=== PATIENT | male | born 2005 | race Caucasian/White ===

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

== ENCOUNTER 2025-04-02 15:56 | Emergency (ER) | payer SELFPAY ==
[2025-04-02 16:30] VITALS: BP 118/72; PULSE 87; RESP 16; O2SAT 98
--- NOTE | 2025-04-02 18:57 | ED_ITS ---
<Statement entered by Summer Aponte DO - 04/02/25 22:26> I was consulted by the TOBIAS, and we discussed the complexity of the problems being addressed. I approved the treatment and management plan for this patient's care in the emergency department, thus performing a substantive portion of the medical decision making. Summer Aponte DO Discharge Plan Disposition Patient Disposition: Home, Self-Care Prescriptions Prescriptions: No Action trazodone 100 MG tablet 100 mg PO DAILY sulfamethoxazole-trimethoprim [Bactrim DS] 800-160 mg tablet 1 tab PO BID 7 Days Qty: 14 0RF Referrals Follow up/Referrals: Lee,Viral, DO [Primary Care Provider, Medical] - See instructions Clinical Impressions Clinical Impression: PND (post-nasal drip) Print Language Print Language: [place] Leone[place] Discharge ED Provider: Summer Aponte General Adult HPI General Stated complaint: SOA, dizzy, throat closing up Time Seen by Provider: 04/02/25 16:03 History of Present Illness HPI narrative: Jam Uriostegui is a 19-year-old male who presents emergency room today with complaints of dizziness that has resolved and complaints of not being able to feel his throat . Patient reports that he woke up this morning and it felt like his throat was a bit swollen. No swelling in his tongue or his lips. States that he had some difficulty swallowing and it was mildly painful. Patient reports he is had some postnasal drip that started yesterday. Apparently there has been upper respiratory viral symptoms going around his house. States he also took some trazodone last night which she does not like to take regularly because it makes him feel funny . Reports that he is taken trazodone in the past and has woke up feeling mildly dizzy from it. States he had the same issue this morning, got up and felt like his head was spinning . Dizziness has since resolved. Patient states that he feels like he is able to adequately swallow now but his throat still is a bit sore. Does report some ongoing sinus drainage. Is able to walk normal and denies any unilateral weakness, numbness, tingling. No facial droop noted, no voice changes. No fever. No other complaints at this time. Please note that the above description of symptoms, and this electronic medical record under categorization of recalled from ER triage doctor by RN are reflective of an initial nursing assessment, however, is not reflective of my full history and physical exam that was personally taken and clarified. Consequentially, this proceeding description of symptoms, which may include the patient's cauterized chief complaint in the EMR, do not reflect my personal clinical impression, and the ultimate description of the history of present illness stated complaints should be deferred to this section of this note. Unless stated otherwise were congruent with the section of the note, additional signs, symptoms, or incongruence can be interpreted as in or accurate with my clinical impression. Related Data Home Medications ?Medication ?Instructions ?Recorded ?Confirmed trazodone 100 mg tablet 100 mg PO DAILY ADHD 0 04/30/20 Previous Rx's ?Medication ?Instructions ?Recorded sulfamethoxazole 800 1 tab PO BID 7 days #14 tabs 12/29/24 mg-trimethoprim 160 mg tablet (Bactrim DS) Allergies Allergy/AdvReac Type Severity Reaction Status Date / Time cefdinir (From OMNICEF) Allergy Mild Unknown Verified 12/29/24 13:24 allergy reaction lisdexamfetamine (From Allergy Mild Unknown Verified 12/29/24 13:24 Vyvanse) allergy reaction PFSH PFS Disclaimer: The information contained in this section may have been updated after the patient was seen, as this information can be updated by other users. Social History , [employer]) Smoking Status: Current every day smoker alcohol intake: current alcohol intake frequency: a few times a month current occupational status: employed Travel in the last 8 weeks?: None Have you lived/traveled outside US in past 30 days?: No Contact w/someone who lives/traveled outside US past 30 days?: No Exposure to someone with infectious disease in past 14 days?: No Do you have a fever (greater than 100.4 F or 38 C)?: No Have you tested positive for COVID-19?: No Exposed to someone with COVID-19 in past 14 days?: No Do you have a sore throat?: No Do you have a cough?: No Do you have any weakness?: No Do you have any diarrhea?: No Are you experiencing any unusual bleeding?: No Do you have any muscle aches/pain?: No Do you have any abdominal pain?: No Are you experiencing loss of taste or smell?: No ROS Obtained: Yes Systems reviewed as appropriate & no additional complaints except as documented Physical Exam General General appearance: alert and in no apparent distress Head Head exam: atraumatic and normocephalic Eye Eye exam: Present PERRL and EOMI Neck Neck exam: Present trachea midline; Absent tenderness Chest Chest inspection: Present symmetric chest wall rise Respiratory Respiratory exam: Present normal lung sounds bilaterally Cardiovascular Cardiovascular exam: Present regular rate and normal rhythm Abdominal Exam Abdominal exam: Present soft and normal bowel sounds; Absent tenderness Extremities Exam Extremities exam: Present full ROM Neurological Exam Neurological exam: Present alert and oriented X3 Skin Skin exam: Present warm, dry and intact Medical Decision Making Medical Records Screening: Per USPSTF and CDC recommendations, given the prevalence of disease in our region, it is our hospital?s policy to screen for HIV and viral Hepatitis for all patients aged 18 and over and those with ongoing risk factors. Oswaldo Inquiry Pt receiving controlled substance: No Vital Signs: 04/02/25 16:30 Pulse Rate 87 Respiratory Rate 16 Blood Pressure 118/72 02 Sat by Pulse Oximetry 98 Oxygen Delivery Method Room Air Medical Decision Narrative: In summary patient is an 19-year-old male who presents emergency department for evaluation of throat swelling/soreness, dizziness that occurred this morning. Patient is hemodynamically stable upon arrival, afebrile. Unremarkable nonfocal physical exam. Trachea midline. Patient controlling secretions. No swelling in his face, lips, tongue. Differential diagnosis includes angioedema versus upper respiratory illness. Initial interventions include medication with Benadryl, Pepcid, and Solu-Medrol. CT of the head was considered but patient had no focal neurodeficits, was not dizzy anymore, was able to walk in a straight line, had 5/5 strength in all extremities, no facial droop noted, no vi suni changes. Chest x-ray was considered, but patient was on room air, had clear lung sounds, and was not tachypneic and denied a cough. I suspect his dizziness this morning was likely laded to his trazodone that he took last night which he states has made him dizzy and felt funny in the past. Patient not currently having any dizziness at this time. His sore throat is likely attributed to his postnasal drip which just started yesterday. Oropharynx was not reddened, no swelling noted. Upon repeat evaluation patient had acceptable resolution of symptoms, states he felt 100% improved after his medication administration. Given this patient was appropriate for discharge. He will not be discharged with any prescriptions. He was directed to follow-up with his primary care doctor as needed and return to the ER if his condition worsened or any of his symptoms returned. Critical Care Critical Care Time Critical Care Time: No
[2025-04-02 19:42] VITALS: BP 123/94; PULSE 89; RESP 19; TEMP 37.5; O2SAT 100; BMI 22.8
[2025-04-02 19:46] VITALS: BP 118/72; PULSE 86; RESP 18; TEMP 36.6; O2SAT 100
[2025-04-02 20:52] LABS: HIV Combo NEGATIVE (Negative)
[2025-04-02 21:00] LABS: Hepatitis C Ab Qual. W/ RFX NEGATIVE (Negative)
== END 2025-04-02 19:48 | disposition home or self-care (01) ==
PROVIDERS: Emergency Provider Emergency Medicine; PCP Family Medicine
DX: R09.82 Postnasal drip (principal); Z11.59 Encounter for screening for other viral diseases; Z11.4 Encounter for screening for human immunodeficiency virus [HIV]
CPT/HCPCS: 86803; 87389; 99283

== ENCOUNTER 2025-05-12 11:32 | Emergency (ER) | payer SELFPAY ==
--- OUTSIDE RECORDS SUMMARY | 2018-03-06 11:00 | XMS_ITS | Encounter Summary ---
Author Organization [place] [address] Care Team Providers Care Oxygen Equipment Technician Name Role Phone Jesus Alcantara DO, Viral Primary Care Provider [phone] Encounter Details Date Type Department Care Team (Latest Contact Info) Description 03/06/2018 11:00 AM EDT Hospital Encounter [facility] EKG [address] [place] [address] Left without seen Social History [...] 12/11/2024 9:35 PM Deborah Bloom RN * [place] Suicide Severity Rating Scale (Q shift for [...] documented as of this encounter Care Teams Oxygen Equipment Technician Relationship Specialty Start Date End Date Cuauhtemoc Lee DO [address] [place] [phone] PCP - General Family Medicine 05/22/14 09/16/24 documented as of this encounter
--- OUTSIDE RECORDS SUMMARY | 2025-03-14 15:00 | XMS_ITS | Encounter Summary ---
Author Organization [place] [address] Care Team Providers Care Furnace Builder Name Role Phone Hodan Petit APRN Primary Care Provider [phone] Reason for Visit * Reason Comments Insomnia Not sleeping, troubl e falling asleep, restless, nightmare Encounter Details Date Type Department Care Team (Late st Contact Info) Description 03/14/2025 3:00 PM EDT Office Visit [facility] [address] [place] [id number] Hodan Petit APRN [address] [place] [address] Chronic insomnia (Primary Dx) Social History Tobacco Use Types Packs/Day Years [...] on file Sexual Orientation Not on file documented as of this encounter Last Filed Vital Signs Vital Sign Reading Time Taken Comments Blood Pressure 124/78 03/14/2025 3:16 PM EDT Pulse 85 03/14/2025 3:16 PM EDT Temperature 36.6 C (97.8 F) 03/14/2025 3:16 PM EDT Respiratory Rate 20 03/14/2025 3:16 PM EDT Oxygen Saturation 98% 03/14/2025 3:16 PM EDT Inhaled Oxygen Concentration - - Weight 85.7 kg (189 lb) 03/14/2025 3:16 PM EDT Height 193 cm (6' 4 ) 03/14/2025 3:16 PM EDT Body Mass Index 23.01 03/14/2025 3:16 PM EDT documented in this encounter Ordered Prescriptions Prescription Sig Dispense Quantity Refills Last Filled Start Date End Date traZODone (DESYREL) 150 mg Oral TabletIndications: Chronic insomnia Take one to two tablet(s) by mouth at bedtime for sleep 60 Tablet 5 03/14/2025 documented in this encounter Progress Notes * Hodan Petit APRN - 03/14/2025 3:00 PM EDTAssociated Problem(s): Chronic insomnia Orders: traZODone (DESYREL) 150 mg Oral Tablet; Take one to two tablet(s) by mouth at bedtime for sleep After discussion of risks, benefits and possible side effects, will begin Trazodone as written. * Hodan Petit APRN - 03/14/2025 3:00 PM EDT Assessment & Plan Chronic insomnia Orders: traZODone (DESYREL) 150 mg Oral Tablet; Take one to two tablet(s) by mouth at bedtime for sleep After discussion of risks, benefits and possible side effects, will begin Trazodone as written. Progress Note: Vitals: 03/14/25 1516 BP: 124/78 Pulse: 85 Resp: 20 Temp: 97.8 ??F (36.6 ??C) TempSrc: Temporal SpO2: 98% Weight: 189 lb (85.7 kg) Height: (!) 6' 4 (1.93 m) Body mass index is 23.01 kg/m??. SUBJECTIVE: Chief Complaint Patient presents with Insomnia Not sleeping, trouble falling asleep, restless, nightmare HPI: Jam presents today with c/o recurrent severe insomnia. reports difficulty falling asleep and staying asleep. reports he was on prescribed medication for ADHD, mood disorder and insomnia from age [age] and once turning 18 he stopped all medication. states his mood is well controlled but he ishaving severe insomnia. had good control with Trazodone in the past. Review of Systems Constitutional: Negative. Respiratory: Negative. Cardiovascular: Negative. Gastrointestinal: Negative. Musculoskeletal: Negative. Skin: Negative. Neurological: Negative. Psychiatric/Behavioral: Positive for sleep disturbance. Negative for dysphoric mood and suicidal ideas. The patient is not nervous/anxious. OBJECTIVE: Physical Exam Vitals reviewed. Constitutional: General: He is not in acute distress. HENT: Mouth/Throat: Mouth: Mucous membranes are moist. Eyes: Conjunctiva/sclera: Conjunctivae normal. Cardiovascular: Rate and Rhythm: Normal rate and regular rhythm. Heart sounds: Normal heart sounds. Pulmonary: Effort: Pulmonary effort is normal. Breath sounds: Normal breath sounds. Abdominal: Palpations: Abdomen is soft. Musculoskeletal: Cervical back: Neck supple. Lymphadenopathy: Cervical: No cervical adenopathy. Skin: General: Skin is warm. Neurological: Mental Status: He is alert and oriented to person, place, and time. Psychiatric: Mood and Affect: Mood normal. Behavior: Behavior normal. Thought Content: Thought content normal. Judgment: Judgment normal. documented in this encounter Plan of Treatment Not on file documented as of this encounter Goals Goal Patient Goal Type Associated Problems Recent Progress Patient-Stated? Author Maintain a healthy diet, exercise regularly and maintain an ideal body weight General No Binh Hernandez MA documented as of this encounter Visit Diagnoses Diagnosis Chronic insomnia- Primary Insomnia, unspecified documented in this encounter Care Teams Furnace Builder Relationship Specialty Start Date End Date Hodan Petit APRN [address] [place], [place] [address] PCP - General Nurse Practitioner 12/13/24 documented as of this encounter
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
[2025-05-12 11:49] VITALS: BP 147/90; PULSE 88; RESP 16; TEMP 36.7; O2SAT 98; BMI 20.7
--- OUTSIDE RECORDS SUMMARY | 2025-05-12 11:50 | XMS_ITS | Clinical Summary ---
Author Organization [facility] Address Formerly [facility] [place] [address] Care Team Providers Care Gym Supervisor Name Role Phone Cuauhtemoc Lee V. D.OFlora Primary Care Provider [phone] Source Comments [facility] is fully rolled out with thefollowing exceptions:General Clinical Research [facility] Allergies Active Allergy Reactions Criticality Noted Date Comments Cefdinir 12/30/2018 Medications No known medications Social History Tobacco Use Types Packs/Day Years Used Date Smoking Tobacco: Never Assessed Intimate Partner Violence Answer Date R ecorded If you are in a relationship , do you feel safe in that relationship? Yes 12/30/2018 Safe in relationship? (18 and older) Not on file 12/30/2018 Safety and Environment Answer Date Jona rded Do you have any concerns of physical abuse, sexual abuse, or neglect of your child? No 12/30/2018 Is an adult hurting you or your family? No 12/30/2018 Has someone ever touched you in a sexual way that was not ok with you? No 12/30/2018 Someone hurting you or family (18 and older) Not on file 12/30/2018 Historical abuse worry Not on file 9 If you have firearms in the home, are they all in locked storage AND unloaded? Not on file 12/30/2018 Sex and Gender Information Value Date Recorded Sex Assigned at Not on file Legal Sex Male 5:19 AM EST Gender Identity Not on file Sexual Orientation Not on file Last Filed Vital Signs Vital Sign Reading Time Taken Comments Blood Pressure 129/64 12/30/2018 1:58 PM EST Pulse 74 12/30/2018 6:14 PM EST Temperature 36.7 C (98.1 F) 12/30/2018 6:14 PM EST Respiratory Rate 16 12/30/2018 6:14 PM EST Oxygen Saturation - - Inhaled Oxygen Concentration - - Weight 61.6 kg (135 lb 12.9 oz) 12/30/2018 1:57 PM EST Height - - Body Mass Index - - Plan of Treatment Health Maintenance Due Date Last Done Comments MENINGOCOCCAL B VACCINE (1 of 2 - Standard) 2021 COVID-19 Vaccine ( season) 2024 AMB SEASONAL FLU VACCINE (Season Ended) 2025 08/23/2014 DTAP/Tdap/Td IMMUNIZATION (7 - Td or Tdap) 06/05/2027 06/05/2017, 2009, 2009, Additional history exists PNEUMOCOCCAL IMMUNIZATION Aged Out 2005, 04/20/2006, 02/13/2006 No longer eligible based on patient's age to complete this topic HIB IMMUNIZATION Completed 08/07/2007, , 04/20/2006, Additional history exists IPV IMMUNIZATION Completed 2009, , 03/27/2006, Additional history exists MMR IMMUNIZATION Completed 2009, 05/18/2007 VARICELLA IMMUNIZATION Completed 2009, 2006 HEPATITIS B IMMUNIZATION Completed 017, 12/11/2008, 03/27/2006, Additional history exists MCV4 IMMUNIZATION Aged Out 06/21/2017 No longer eligible based on patient's age to complete this topic HEPATITIS A IMMUN (OPTIONAL 2-17 YRS) Discontinued 01/05/2018, 06/21/2017 HPV IMMUNIZATION Completed 06/29/2018, 06/05/2017 Respiratory Syncytial Virus (RSV) <20mo Aged Out No longer eligible based on patient's age to complete this topic Insurance Member Subscriber Plan / Payer (Ef fective 2018-Present) Name:Jam Bustamante Relation to Subscriber:Self Name:Jam Bustamante Payer ID:[id number] (NAIC) Group ID:Not on file Type:HMO Medicaid Address: [place], [place] Care Teams Gym Supervisor Relationship Specialty Start Date End Date [place] [address] PCP - General 05/15/18
--- OUTSIDE RECORDS SUMMARY | 2025-05-12 11:50 | XMS_ITS | Clinical Summary ---
Author Organization [facility] Address [address] [id number] Care Team Providers Care Machine Assistant Name Role Phone None, None Primary Care Provider Unavailabl e Allergies Active Allergy Reactions Criticality Noted Date Comments Cefdinir Rash 02/03/2012 Lisdexamfetamine Other (See Comments) 2 TICS Medications Amphetamine-Dextro amphetamine (ADDERALL XR) 20 mg PO [id number]:AD HD (attention deficit hyperactivity disorder) Take 20 mg by mouth daily. 30 Tab 0 4 Active risperiDONE (RISPERDAL) 2 mg PO Tab Take 1 Tab by mouth 2 times daily. 60 Tab 0 4 Active divalproex (DEPAKOTE SPRINKLE) 125 mg Capsule, Sprinkle TAKE ONE CAPSULE BY MOUTH EVERY MORNING AND TWO CAPSULES EVERY EVENING 90 Cap 0 4 Active Active Problems Problem Noted Date Diagnosed Date ADHD (attention deficit hyperactivity disorder) 01/24/2013 Mood disorder ([facility]) 01/24/2013 Behavioral problems 01/24/2013 Affective disorder ([facility]) 01/24/2013 Social History Tobacco Use Types Packs/Day Years Used Date Smoking Tobacco: Never Assessed Tobacco Cessation:Counseling Given: Yes Sex and Gender Information Value Date Recorded Sex Assigned at Not on file Legal Sex Male 7:18 PM EST Gender Identity Not on file Sexual Orientation Not on file Last Filed Vital Signs Vital Sign Reading Time Taken Comments Blood Pressure 84/60 11/20/2013 1:53 PM EST Pulse 92 11/20/2013 1:53 PM EST Temperature 36.7 C (98 F) 11/20/2013 1:53 PM EST Respiratory Rate 16 12/19/2012 4:39 PM EST Oxygen Saturation 98% 11/20/2013 1:53 PM EST Inhaled Oxygen Concentration - - Weight 31.8 kg (70 lb 3.2 oz) 11/20/2013 1:53 PM EST Height 137.8 cm (4' 6.25 ) 11/20/2013 1:53 PM ES T Body Mass Index 16.77 11/20/2013 1:53 PM EST Body Mass Index Percentile 70.98% 11/20/2013 1:5 3 PM EST Growth Chart: [facility] (Boys, 2-2 0 Years) Plan of Treatment Health Maintenance Due Date Last Done Comments HPV Vaccine (1 - Male 3-dose series) 2020 Tetanus Vaccination (Every 1 0 Years) 2023 COVID-19 Vaccine (1 - 2023-2 5 season) 2024 Depression Screening 11/06/2024 Influenza Vaccination (#1) 2025 Meningococcal Conjugate Vaccine Aged Out No longer eligible based on patient's age to complete this topic Insurance MEDICAID [place] MEDICAID OTHER STATES Care Teams Machine Assistant Relationship Specialty Start Date End Date None, None [address] [place] [address] PCP - General 04/09/14
--- OUTSIDE RECORDS SUMMARY | 2025-05-12 11:50 | XMS_ITS | Encounter Summary ---
Author Organization [facility] Address [address] [place] [address] Care Team Providers Care Pharmacist Assistant Name Role Phone None, None Primary Care Provider Unavailabl e Reason for Visit * Reason Comments Medications Refill Encounter Details Date Type Department Care Team (Late st Contact Info) Description 06/21/2014 Refill [facility] Physicians - Primary Care, Betty Dinh [address] [place] [address] [place] [address] Medications Refill Social History Tobacco Use Types Packs/Day Years Used Date Smoking Tobacco: Never Assessed Sex and Gender Information Value Date Recorded Sex Assigned at Not on file Legal Sex Male 7:18 PM EST Gender Identity Not on file Sexual Orientation Not on file documented as of this encounter Miscellaneous Notes * Telephone Encounter - Maicol Lovett MD - 06/23/2014 6:09 PM EDT Patient was dismissed for no shows. Was done back in April. No further refills. * Telephone Encounter - Clair Pichardo - 06/23/2014 9:42 AM EDT LAST OV 11/20/2013 LAST REF 02/18/2014 NO FURTHER APPT OKAY TO REFILL? documented in this encounter Plan of Treatment Not on file documented as of this encounter Visit Diagnoses Not on filedocumented in this encounter Care Teams Pharmacist Assistant Relationship Specialty Start Date End Date None, None [address] [place] [address] PCP - General 04/09/14 documented as of this encounter
--- OUTSIDE RECORDS SUMMARY | 2025-05-12 11:50 | XMS_ITS | Clinical Summary ---
Author Organization [facility] Address [facility] [place] [address] Phone Care Team Providers Care Patient Safety Sitter Name Role Phone Hodan Petit APRN Primary Care Provider [phone] Allergies Active Allergy Reactions Criticality Noted Date Comments Methylphenidate 10/18/2010 Cefdinir Rash Lisdexamfetamine Other (See Comments) 1 Causes tics Medications * This document contains information received from the source organization and may not represent a complete record from that organization. traZODone (DESYREL) 150 mg Oral TabletIndicatio ns:Chronic insomnia Take one to two tablet(s) by mouth at bedtime for sleep 60 Tablet 5 03/14/2025 Active Active Problems Problem Noted Date Diagnosed Date ADHD (attention deficit hyperactivity disorder) 08/23/2010 Chronic insomnia 08/23/2010 Assessment & Plan (03/14/2025 8:19 PM EDT): Orders: traZODone (DESYREL) 150 mg Oral Tablet; Take one to two tablet(s) by mouth at bedtime for sleep After discussion of risks, benefits and possible side effects, will begin Trazodone as written. Encounters Date Type Department Care Team Description 03/14/2025 3:00 PM EDT Office Visit [facility] [address] [place], [place] [phone] Hodan Petit APRN Chronic insomnia (Primary Dx) from Last 3 Months Immunizations Immunization Administration Dates Next Due DTaP 2009, 7,05/26/2006,03/07,02/13/2006 DTaP, Unspecified Formulation 2009 ,08/07/2007,05/26/2006,03/07,02/13/2006 HPV 9 Valent 06/29/2018,06/05/2017 Hepatitis A, Ped/Adol, 2 Dose 01/05/2018, 017 Hepatitis B, Ped/Adol 06/21/2017, 009,02/13/2006,11/07 Hepatitis B, Unspecified Formulation 03/27/2006, 02/13/2006,2005 HiB, Unspecified Formulation 08/07/2007, 05/26/2006,04/20/2006,02/04 IPV 2009, 6,03/27/2006,02/04 Influenza Vaccine Quadrivalent 08/23/2014 LAST MANUFACTURED 2010-Pneum ococcal Conjugate 7 Valent 05/26/2006,04/20/2006,02/13/2006 MMR 2009,05/18/2007 Meningococcal Conjugate 06/21/2017 Meningococcal Oligosaccharide Conjugate 01/05/20 23 Pneumococcal Conjugate Vacci ne 13 Valent 05/26/2006,04/20/2006,02/13/2006 Tdap 11/24/2024,06/05/2017 Varicella 2009,11/27/2006 Surgical History Surgery Date Site/Laterality Comments TONSILLECTOMY DENTAL SURGERY dental and frenulectomy DENTAL SURGERY 01/19/2011 N/A DENTAL PROCEDURE performed by HERLINDA HERNNADEZ at [facility] MAIN OR DENTAL SURGERY 01/07/2015 N/A DENTAL PROCEDURE, exam under anesthesia, extractions x 7, prophylaxis, flouride, restorations; Surgeon: Herlinda Hernandez DMD; Location: [facility]; Service: Dental Medical History Medical History Date Comments Attention deficit disorder ADHD (attention deficit hyperactivity disorder) Second hand smoke exposure x2 Hx MRSA infection Mood disorder Bipolar disorder (HCC) Family History Medical History Relation Name Comments Anesth Problems Neg Hx Relation Name Status Comments Father Alive Mother Alive Social History Tobacco Use Types Packs/Day Years Used Date Smoking Tobacco: Never Passive Smoke Exposure: Yes Smokeless Tobacco: Never Tobacco Cessation:Counseling Given: Not Answered Alcohol Use Standard Drinks/Week Comments No 0 [...] on file Sexual Orientation Not on file Obstetrics History Growth Chart Information Age Height Weight [id number] th Percentile BMI Percentile Head Circum Head Circum Percentile Date 19 years 193 cm (6' 4 ) 85.7 kg (189 lb) 54.70%* 2024 19 years 193 cm (6' 4 ) 85.7 kg (189 lb) 56.51%* 2024 18 years 193 cm (6' 4 ) 88 kg (194 lb) 63.88%* 2024 17 years 190.5 cm (6' 3 ) 87.9 kg (193 lb 11.2 oz) 79.81%* 2022 15 years 187 cm (6' 1.62 ) 100 kg (220 lb 6.4 oz) 95.78%* 2020 15 years 185.4 cm (6' 1 ) 97.3 kg (214 lb 9.6 oz) 95.77%* 2020 14 years 78.4 kg (172 lb 14.4 oz) 2019 14 years 76.4 kg (168 lb 7 oz) 2019 13 years 165.1 cm (5' 5 ) 61.2 kg (135 lb) 86.31%* 2018 13 years 61.7 kg (136 lb) 2018 12 years 164.5 cm (5' 4.75 ) 57.6 kg (127 lb) 83.98%* 2017 12 years 62.1 kg (137 lb) 2017 11 years 57.2 kg (126 lb 3.2 oz) 2016 11 years 53.1 kg (117 lb) 2016 11 years 154.3 cm (5' 0.75 ) 53.1 kg (117 lb) 91.98%* 2016 10 years 146.1 cm (4' 9.5 ) 41.5 kg (91 lb 6.4 oz) 81.77%* 2015 10 years 146.1 cm (4' 9.5 ) 37.1 kg (81 lb 12.8 oz) 62.55%* 2015 9 years 143 cm (4' 8.3 ) 35.4 kg (78 lb 2 oz) 68.53%* 2014 9 years 142.2 cm (4' 8 ) 36.6 kg (80 lb 9.6 oz) 78.40%* 2014 9 years 142.2 cm (4' 8 ) 35.8 kg (79 lb) 75.22%* 2014 9 years 139.7 cm (4' 7 ) 35.6 kg (78 lb 8 oz) 81.33%* 2014 9 years 37.6 kg (83 lb) 2014 9 years 141 cm (4' 7.5 ) 37.6 kg (83 lb) 86.85%* 2014 9 years 38.1 kg (84 lb) 2014 8 years 138 cm (4' 6.33 ) 31.8 kg (70 lb) 63.05%* 2013 8 years 138 cm (4' 6.33 ) 26.5 kg (58 lb 6.4 oz) 5.57%* 2013 7 years 30.4 kg (67 lb 2 oz) 2012 6 years 124.5 cm (4' 1 ) 24.5 kg (54 lb) 60.24%* 2011 6 years 24.6 kg (54 lb 3 oz) 2011 6 years 23.2 kg (51 lb 3 oz) 2011 6 years 22.9 kg (50 lb 8 oz) 2011 5 years 22.7 kg (50 lb) 2010 5 years 20 kg (44 lb) 2010 5 years 19.5 kg (43 lb) 2010 5 years 19.5 kg (43 lb) 2010 5 years 19.5 kg (43 lb) 2010 5 years 115.6 cm (3' 9.5 ) 19.1 kg (42 lb) 14.97%* 13.06%* 2010 5 years 113 cm (3' 8.5 ) 19.5 kg (43 lb) 47.22%* 45.13%* 2010 5 years 18.6 kg (41 lb) 2010 5 years 116.8 cm (3' 10 ) 19.5 kg (43 lb) 15.89%* 13.44%* 2010 5 years 116.8 cm (3' 10 ) 19.5 kg (43 lb) 15.89%* 13.40%* 2010 4 years 19.1 kg (42 lb) 2010 4 years 19.1 kg (42 lb) 2009 4 years 19.1 kg (42 lb) 2009 4 years 111.8 cm (3' 8 ) 18.8 kg (41 lb 6 oz) 38.39%* 34.63%* 2009 * CDC (Boys, 2-20 Years) Last Filed Vital Signs Vital Sign Reading [...] Mass Index 23.01 03/14/2025 3:16 PM EDT Plan of Treatment Health Maintenance Due Date Last Done Comments Meningococcal B Vaccine (1 of 2 - Standard) 2021 COVID-19 Vaccine ( - 2023- season) 2024 Influenza Vaccine (#1) 2025 6 (Declined), 08/23/2014 Annual Wellness Exam 12/13/2025 12/13/2024 DTaP/TDaP/Td (8 - Td or Tdap) 11/24/2034 11/24/2024, 06/05/2017, 2009, Additional history exists Pneumococcal Vaccine 0-49 Aged Out 2005, 05/26/2006, 04/20/2006, Additional history exists No longer eligible based on patient's age to complete this topic Hepatitis B Vaccine Completed 06/21/2017, 12/11/2008, 03/27/2006, Additional history exists HPV Completed 06/29/2018, 06/05/2017 Goals Goal Patient Goal Type Associated Problems Recent Progress Patient-Stated? Author Maintain a healthy diet, exercise regularly and maintain an ideal body weight General No Binh Hernandez MA Insurance [employer] [facility] [place] [id number] [employer] [facility] ATTN: [employer] [place] [address] [place] [id number] [place] [address] [place] [phone] Care Teams Patient Safety Sitter Relationship Specialty Start Date End Date Hodan Petit, SOFTWARE VALIDATION ENGINEER [address] [place] [address] PCP - General Nurse Practitioner 12/13/24
[2025-05-12] MEDS: IBUPROFEN 400 MG TABLET 800 MG PO (12:32)
[2025-05-12] MEDS: LIDOCAINE 5% TRANSDERMAL PATCH 1 EACH TD (12:32)
[2025-05-12] MEDS: METHOCARBAMOL 500MG TABLET 500 MG PO (12:33)
[2025-05-12] MEDS: ACETAMINOPHEN 500MG TAB 1000 MG PO (12:33)
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
[2025-05-12 12:56] VITALS: BP 130/80; PULSE 80; RESP 18; TEMP 36.7; O2SAT 98
== END 2025-05-12 12:58 | disposition home or self-care (01) ==
PROVIDERS: Emergency Provider Emergency Medicine; PCP Pediatrics
DX: M25.512 Pain in left shoulder (principal); W17.89XA Other fall from one level to another, initial encounter
CPT/HCPCS: 73000; 73030; 73060; 99284

== ENCOUNTER 2025-08-24 15:48 | Emergency (ER) | payer SELFPAY ==
--- OUTSIDE RECORDS SUMMARY | 2018-03-06 11:00 | XMS_ITS | Encounter Summary ---
Author Organization [place] [address] Care Team Providers Care Chairman & Chief Executive Officer Name Role Phone Jesus Alcantara DO, Viral Primary Care Provider [phone] Encounter Details Date Type Department Care Team (Latest Contact Info) Description 03/06/2018 11:00 AM EDT Hospital Encounter [facility] EKG [address] [facility] [place] [address] Left without seen Social History Tobacco Use Types Packs/Day Years Used Date Smoking Tobacco: Never Passive Smoke Exposure: Yes Smokeless Tobacco: Never Alcohol Use Standard Drinks/Week Comments No 0 (1 standard drink = 0.6 oz pur e alcohol) Overall Financial Resource Strain (CARDIA) Answe r Date Recorded Difficulty of Paying Living Expenses Not hard at all 04/23/2020 PHQ-2 Answer Date Recorded PHQ-2 Total Score 0 12/13/2024 Hunger Vital Sign Answer Date Recorded Worried About Running Out of Food in the Last Ye ar Never true 04/23/2020 Ran Out of Food in the Last Year Never true 04/23/2020 PRAPARE - Transportation Answer Date Re corded Lack of Transportation (Medical) No 04/23/2020 Lack of Transportation (Non-Medical) No 04/23/2020 Sexually Active Control Partners Comments Yes Female Sex and Gender Information Value Date Recorded Sex Assigned at Not on file Legal Sex Male 7:24 AM EDT Gender Identity Not on file Sexual Orientation Not on file COVID-19 Exposure Response Date Recorded In the last 10 days, have yo u been in contact with someone who was confirmed or suspected to have Coronavirus/COVID-19? No / Unsure 02/17/2023 8:33 PM EDT documented as of this encounter Functional Status * Alcohol Screening Questionnaire (AUDIT) Question Answer Date of Assessment Author How often do you have a drin k containing alcohol? 0 04/24/2020 9:46 PM EDT Yris Inman, JANELL * Alcohol Screening Score Answer Date of Assessment Author 0 04/24/2020 9:46 PM EDT Yris Inman RN * Drug Screening Score Answer Date of Assessment Author 0 04/24/2020 9:46 PM EDYris Lai RN * PHQ-9 Total Score Answer Date of Assessment Author 0 12/13/2024 10:41 AM EST Delaney Michaels, RMA * Question Answer Date of Assessment Author Little interest or pleasure in doing things 0 12/13/2024 10:41 AM EST Keara, Yovanny y Sera, RMA Feeling down, depressed, or hopeless 0 12/13/2024 10:41 AM EST KearaCornelius zamarripa, RMA PHQ-2 Total Score 0 12/13/2024 10:41 AM EST KearaDelaney zamarripa, RMA * Question Answer Date of Assessment Author Trouble falling or staying asleep, or sleeping too much 0 12/13/2024 10:41 AM EST McCnahuml essDelaney, RMA Feeling tired or having sulma le energy 0 12/13/2024 10:41 AM EST KearaCornelius zamarripa, RMA Poor appetite or overeating 0 12/13/2024 10 :41 AM EST Delaney Sarah, RMA Feeling bad about yourself - or that you are a failure or have let yourself or your family down 0 12/13/2024 10:41 AM EST Cornelius Sarah, RMA Trouble concentrating on things, such as reading the newspaper or watching television 0 12/13/2024 10:41 AM EST KearaCornelius zamarripa, RMA Moving or speaking so slowly that other people could have noticed. Or the opposite - being so fidgety or restless that you have been moving around a lot more than usual 0 12/13/2024 10:41 AM EST McCandl essDelaney, RMA Thoughts that you would be better off , or of hurting yourself in some way 0 12/13/2024 10:41 AM EST Benedict Sarah, RMA * Suicide Severity Rating Answer Date of Assessment Author No Risk 12/11/2024 9:35 PM Deborah Bloom RN * [place] Suicide Severity Rating Scale (Q shift for moderate and high) Question Answer Date of Assessment Author 1. In the past month, have y ou wished you were or wished you could go to sleep and not wake up? 0 12/11/2024 9:35 PM Lyn Bloom RN 2. In the past month, have y ou actually had any thoughts of killing yourself? (If no, skip to question 6) 0 12/11/2024 9:35 PM Ld Bloom RN 6. Have you ever done anythi ng, started to do anything, or prepared to do anything to end your life? 0 12/11/2024 9:35 PM Ld Bloom RN documented as of this encounter Plan of Treatment Not on file documented as of this encounter Goals Goal Patient Goal Type Associated Problems Recent Progress Patient-Stated? Author Maintain a healthy diet, exercise regularly and maintain an ideal body weight General No Binh Hernandez MA documented as of this encounter Visit Diagnoses Not on filedocumented in this encounter Additional Health Concerns Infection Onset Date Last Indicated Resolved Time R/O COVID-19 08/24/2021 08/24/2021 08/25/2021 12:5 7 AM EDT documented as of this encounter Care Teams Chairman & Chief Executive Officer Relationship Specialty Start Date End Date Cuauhtemoc Lee DO [address] [place] [phone] PCP - General Family Medicine 05/22/14 09/16/24 documented as of this encounter
[2025-08-24 15:53] VITALS: BP 156/80; PULSE 83; RESP 18; TEMP 36.7; O2SAT 99; BMI 23.0
--- OUTSIDE RECORDS SUMMARY | 2025-08-24 16:00 | XMS_ITS | Clinical Summary ---
Author Organization [facility] Address [address] [address] Care Team Providers Care Visual Education Teacher Name Role Phone None, None Primary Care Provider Unavailabl e Allergies Active Allergy Reactions Criticality Noted Date Comments Cefdinir Rash 02/03/2012 Lisdexamfetamine Other (See Comments) 2 TICS Medications Amphetamine-Dextro amphetamine (ADDERALL XR) 20 mg PO [id number]:AD HD (attention deficit hyperactivity disorder) Take 20 [...] (attention deficit hyperactivity disorder) 01/24/2013 Mood disorder 01/24/2013 Behavioral problems 01/24/2013 Affective disorder 01/24/2013 Social History Tobacco Use Types Packs/Day [...] 11/20/2013 1:5 3 PM EST Growth Chart: [facility] (Boys, 2-2 0 Years) Plan of Treatment Health Maintenance Due Date Last Done Comments HPV Vaccine (1 - Male 3-dose series) 2020 Tetanus Vaccination (Every 1 0 Years) 2023 Depression Screening 11/06/2024 COVID-19 Vaccine (1 - 2023-2 5 season) 2025 Influenza Vaccination (#1) 2025 Meningococcal Conjugate Vaccine Aged Out No longer eligible based on patient's age to complete this topic Insurance MEDICAID OTHER STATES MEDICAID OTHER STATES Care Teams Visual Education Teacher Relationship Specialty Start Date End Date None, None [address] [place] [address] PCP - General 04/09/14
--- OUTSIDE RECORDS SUMMARY | 2025-08-24 16:00 | XMS_ITS | Clinical Summary ---
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 Social History Tobacco Use Types Packs/Day Years Used Date Smoking Tobacco: Never Assessed Sex and Gender Information Value Date Recorded Sex Assigned at Not on file Legal Sex Male 2:14 PM EDT Gender Identity Not on file Sexual Orientation Not on file Plan of Treatment Health Maintenance Due Date Last Done Comments Annual SDOH Screening 11/06/2024 Depression Screening 11/06/2024 Influenza Vaccine (#1) 2025 08/23/2014 Tdap/Td Vaccine >11 yo (7 - Td or Tdap) 06/05/2027 06/05/2017, 2009, 2009, Additional history exists Pneumococcal Vaccines 6-49 yo Risk Aged Out 05/26/2006, 05/26/2006, 05/26/2006, Additional history exists No longer eligible based on patient's age to complete this topic Haemophilus Influenzae Type B (Hib) Vaccine Completed 08/07/2007, 05/26/2006, 04/20/2006, Additional history exists Polio (IPV) Completed 2009, 05/07, 03/27/2006, Additional history exists Hepatitis B (HepB) Vaccine Completed 06/21, 12/11/2008, 03/27/2006, Additional history exists Meningococcal ACWY Aged Out 06/21/2017 No longer eligible based on patient's age to complete this topic Hepatitis A (HepA) Vaccine Completed 01/05/2018, HPV Vaccine Completed 06/29/2018, 06/05/2017 Rotavirus (RV) Vaccine Aged Out No lo nger eligible based on patient's age to complete this topic Insurance [facility] Care Teams Research Microbiologist Relationship Specialty Start Date End Date None, Physician PCP - General 07/23/20
--- OUTSIDE RECORDS SUMMARY | 2025-08-24 16:00 | XMS_ITS | Encounter Summary ---
Author Organization [facility] Address [address] [place] [address] Care Team Providers Care Heavy Forging Machine Operator Name Role Phone None, None Primary Care Provider Unavailabl e Reason for Visit * Reason Comments Medications Refill Encounter Details Date Type Department Care Team (Late st Contact Info) Description 06/21/2014 Refill [facility] Physicians - Primary Care, Betty Dinh [address] [place] [address] [place] [address] Medications Refill Social History Tobacco Use Types [...] on filedocumented in this encounter Care Teams Heavy Forging Machine Operator Relationship Specialty Start Date End Date None, None [address] [place] [address] PCP - General 04/09/14 documented as of this encounter
--- OUTSIDE RECORDS SUMMARY | 2025-08-24 16:00 | XMS_ITS | Clinical Summary ---
Author Organization [facility] Address [facility] [place] [address] Care Team Providers Care Global Manager Name Role Phone Cuauhtemoc Lee DO Primary Care Provider [phone] Source Comments [facility] is fully rolled out with thefollowing exceptions:General Clinical Research [facility] Allergies Active Allergy Reactions Criticality Noted [...] VACCINE (1 of 2 - Standard) 2021 AMB SEASONAL FLU VACCINE (#1) 07/07/2025 08/23/2014 COVID-19 Vaccine ( season) 2025 DTAP/Tdap/Td IMMUNIZATION (7 - Td or Tdap) [...] Relation to Subscriber:Self Name:Jam Bustamante Payer ID:[id number] (NA) Group ID:Not on file Type:HMO Medicaid Address: [place], [place] Care Teams Global Manager Relationship Specialty Start Date End Date Cuauhtemoc Lee DO [address] [address] PCP - General 05/15/18
--- OUTSIDE RECORDS SUMMARY | 2025-08-24 16:00 | XMS_ITS | Clinical Summary ---
Author Organization [facility] Address [facility] [place] [address] Phone Care Team Providers Care Ceiling Insulation Blower Name Role Phone Hodan Petit APRN Primary Care Provider [phone] Allergies Active Allergy Reactions Criticality Noted Date Comments Methylphenidate 10/18/2010 Cefdinir Rash Lisdexamfetamine Other (See Comments) 1 Causes tics Medications * This document contains information received from the source organization and may not represent a complete record from that organization. No known medications Active Problems Problem Noted Date Diagnosed Date ADHD (attention deficit hyperactivity disorder) 08/23/2010 Chronic insomnia 08/23/2010 Assessment & Plan (03/14/2025 8:19 PM EDT): Orders: traZODone (DESYREL) 150 mg Oral Tablet; Take one to two tablet(s) by mouth at bedtime for sleep After discussion of risks, benefits and possible side effects, will begin Trazodone as written. Immunizations Immunization Administration Dates Next Due DTaP [...] 01/19/2011 N/A DENTAL PROCEDURE performed by HERLINDA HERNANDEZ at [facility] MAIN OR DENTAL SURGERY 01/07/2015 N/A DENTAL PROCEDURE, exam under anesthesia, extractions x 7, prophylaxis, flouride, restorations; Surgeon: Herlinda Hernandez DMD; Location: [facility] MAIN OR; Service: Dental Medical History Medical History Date [...] on file Sexual Orientation Not on file Growth Chart Information Age Height Weight Xointt-ydv-whno th Percentile BMI Percentile Head Circum Head Circum Percentile Date 19 years 193 cm (6' 4 ) 83 kg (183 lb) 43.80%* 2024 19 years 193 cm (6' 4 [...] lb 6 oz) 38.39%* 34.63%* 2009 * [facility] (Boys, 2-20 Years) Last Filed Vital Signs Vital Sign Reading Time Taken Comments Blood Pressure 118/74 05/14/2025 11:22 AM EDT Pulse 78 05/14/2025 11:22 AM EDT Temperature 36.6 C (97.9 F) 05/14/2025 11:22 AM EDT Respiratory Rate 20 05/14/2025 11:22 AM EDT Oxygen Saturation 98% 05/14/2025 11:22 AM EDT Inhaled Oxygen Concentration - - Weight 83 kg (183 lb) 05/14/2025 11:22 AM EDT Height 193 cm (6' 4 ) 05/14/2025 11:22 AM EDT Body Mass Index 22.28 05/14/2025 11:22 AM EDT Plan of Treatment Health Maintenance Due Date Last Done Comments Meningococcal B Vaccine (1 of 2 - Standard) 2021 COVID-19 Vaccine (1 - 2024- season) 2025 Influenza Vaccine (#1) 2025 6 (Declined), 08/23/2014 [...] an ideal body weight General No Binh Hernandez, [place] Insurance [place] [id number] [employer] Member Subscriber Plan / Payer (Ef fective 2024-Present) Name:Reece Bustamante Relation to Subscriber:Employee Name:REECE BUSTAMANTE Date of :2005 (Home) Address: [place] [address] Payer ID:Not on file Group ID:UNKNOWN Type:Not on file Address: [address] [id number] [facility] [place] [id number] [employer] [facility] [place] [id number] [place] [id number] [place] [phone] Care Teams Ceiling Insulation Blower Relationship Specialty Start Date End Date Hodan Petit [place] [place] [address] PCP - General Nurse Practitioner 12/13/24
--- NOTE | 2025-08-24 16:16 | ED_ITS ---
Discharge Plan Disposition Patient Disposition: Home, Self-Care Prescriptions Prescriptions: New amoxicillin-pot clavulanate 875-125 mg tablet 1 tab PO BID 7 Days Qty: 14 0RF ciprofloxacin-dexamethasone 0.3-0.1 % drops,suspension 4 drp otic (ear) BID 7 Days Qty: 7.5 0RF No Action trazodone 100 MG tablet 100 mg PO DAILY sulfamethoxazole-trimethoprim [Bactrim DS] 800-160 mg tablet 1 tab PO BID 7 Days Qty: 14 0RF Referrals Follow up/Referrals: Devon Serra [Primary Care Provider, Medical] - See instructions Activity Restrictions/Add. Instructions Additional Instructions/Restrictions: You are found to have an infection in the middle part of your as well as the ear canal itself. You are being prescribed antibiotics to take by mouth as well as antibiotic and steroid eardrops. Take these as prescribed for total of 7 days. Follow-up with your primary care physician if symptoms do not improve after completion of the antibiotics. If you develop any new or worsening symptoms such as fever, headaches, or if you become concerned for your help for any reason, return to the emergency department for evaluation Clinical Impressions Clinical Impression: Otitis media, Otitis externa Print Language Print Language: Hungarian Discharge ED Provider: [facility] Adult HPI General Chief complaint: Ear Stated complaint: left ear painful and face hurts Time Seen by Provider: 08/24/25 16:06 Mode of Arrival: Ambulatory Description of Symptoms (Recalled from ER Triage Doc. by RN): Pt presents for evaluation of left ear pain and left facial pain for a month. History of Present Illness HPI narrative: Jam Burns is a 19y male with a history of recurrent otitis media as a child requiring ear tubes that are no longer in place but otherwise healthy who presents to the emergency room for 1 month of left ear pain, ear drainage and decreased hearing. Patient states that feels like he has a left-sided ear infection. He has been taking an antibiotic that he had leftover from previous ear infection but does not know what it is. He states that he has pain in his left ear. He states that sometimes it hurts when he chews but does not have any dental pain. He does not have any fevers. Related Data Home Medications ?Medication ?Instructions ?Recorded ?Confirmed trazodone 100 mg tablet 100 mg PO DAILY ADHD 04/30/2 0 04/30/20 Previous Rx's ?Medication ?Instructions ?Recorded sulfamethoxazole 800 1 tab PO BID 7 days #14 tabs 12/29/24 mg-trimethoprim 160 mg tablet (Bactrim DS) amoxicillin 875 mg-potassium 1 tab PO BID 7 days #14 t abs 08/24/25 clavulanate 125 mg tablet ciprofloxacin 0.3 %-dexamethasone 4 drp otic (ear) BID 7 days #7.5 mL 08/24/25 0.1 % ear drops,suspension Allergies Allergy/AdvReac Type Severity Reaction Status Date / Time cefdinir (From OMNICEF) Allergy Mild Unknown Verified 12/29/24 13:24 allergy reaction lisdexamfetamine (From Allergy Mild Unknown Verified 12/29/24 13:24 Vyvanse) allergy reaction PFSH PFS Disclaimer: The information contained in this section may have been updated after the patient was seen, as this information can be updated by other users. Social History Smoking Status: Current every day smoker alcohol intake: current alcohol intake frequency: a few times a month current occupational status: employed Travel in the last 8 weeks?: None Have you lived/traveled outside [place] in past 30 days?: No Contact w/someone who lives/traveled outside [place] past 30 days?: No Exposure to someone with infectious disease in past 14 days?: No Do you have a fever (greater than 100.4 F or 38 C)?: No Have you tested positive for COVID-19?: No Exposed to someone with COVID-19 in past 14 days?: No Do you have a sore throat?: No Do you have a cough?: No Do you have any weakness?: No Do you have any diarrhea?: No Are you experiencing any unusual bleeding?: No Do you have any muscle aches/pain?: No Do you have any abdominal pain?: No Are you experiencing loss of taste or smell?: No ROS Obtained: Yes Systems reviewed as appropriate & no additional complaints except as documented Physical Exam General General appearance: alert and in no apparent distress Head Head exam: atraumatic Eye Eye exam: Present normal appearance ENT ENT exam: Present normal oropharynx (No tenderness to percussion), mucous membranes moist, normal external ear exam and other (No mastoid tenderness or bogginess. Tenderness with downward traction of the tragus. There is some erythema in the left external auditory canal and bulging and erythema of the left tympanic membrane) Neck Neck exam: Present full ROM Chest Chest inspection: Present symmetric chest wall rise Respiratory Respiratory exam: Present normal lung sounds bilaterally; Absent respiratory distress Cardiovascular Cardiovascular exam: Present regular rate and normal rhythm Abdominal Exam Abdominal exam: Present soft; Absent tenderness or guarding exam: Present deferred Extremities Exam Extremities exam: Present normal inspection Back Exam Back exam: Present normal inspection Neurological Exam Neurological exam: Present alert and oriented X3 Psychiatric Psychiatric exam: Present normal affect Skin Skin exam: Present warm and dry Medical Decision Making Medical Records Screening: Per USPSTF and CDC recommendations, given the prevalence of disease in our region, it is our hospital?s policy to screen for HIV and viral Hepatitis for all patients aged 18 and over and those with ongoing risk factors. Oswaldo Inquiry Pt receiving controlled substance: No Vital Signs: 08/24/25 15:53 Temperature 98.0 F Temperature Source Temporal Artery Scan Pulse Rate [Right] 83 Respiratory Rate 18 Blood Pressure [Right Arm] 156/80 H Blood Pressure Mean [Right Arm] 105 Blood Pressure Source [Right Arm] Automatic Cuff Blood Pressure Position [Right Arm] Sitting 02 Sat by Pulse Oximetry 99 Oxygen Delivery Method Room Air Medical Decision Narrative: Jam Burns is a 19y male with a history of recurrent otitis media as a child requiring ear tubes that are no longer in place but otherwise healthy who presents to the emergency room for 1 month of left ear pain, ear drainage and decreased hearing. Patient states that feels like he has a left-sided ear infection. He has been taking an antibiotic that he had leftover from previous ear infection but does not know what it is. He states that he has pain in his left ear. He states that sometimes it hurts when he chews but does not have any dental pain. He does not have any fevers. On arrival, patient is hypertensive with blood pressure 156/80, afebrile, breathing comfortably room air with oxygen saturation 99% SpO2. Physical exam, stated above, revealed an overall well- appearing male in no distress. Oropharyngeal exam is unremarkable with uvula midline, no muffled voice, no tenderness to percussion or significant dental caries or dental erosion. Left tympanic membrane is bulging and erythematous. Left external auditory canal is mildly edematous with erythema. No active drainage at this time. He has pain with downward traction of the tragus. No tenderness or bulging or erythema of the mastoid area. Patient's physical exam and symptoms are most consistent with otitis media and likely otitis externa. I do not have any concern for peritonsillar abscess or odontogenic infection. No additional laboratory studies or imaging studies are indicated at this time. Will prescribe patient a 7-day course of Augmentin as well as 7-day course of ciprofloxacin?dexamethasone drops. I encouraged him to follow with his primary care physician next week after completion of the antibiotics, especially if symptoms persist. Return precautions were given. All questions were answered. He demonstrated understanding and was in agreement this plan. He was then discharged from the emergency department in stable condition. Critical Care Critical Care Time Critical Care Time: No
[2025-08-24 16:20] VITALS: BP 156/80; PULSE 83; RESP 18; TEMP 36.6; O2SAT 99
== END 2025-08-24 16:21 | disposition home or self-care (01) ==
PROVIDERS: Emergency Provider Student in an Organized Health Care Education/Training Program; PCP Pediatrics
DX: H66.92 Otitis media, unspecified, left ear (principal); H60.92 Unspecified otitis externa, left ear; F17.210 Nicotine dependence, cigarettes, uncomplicated
CPT/HCPCS: 99283